=== PATIENT | male | born 1965 | race Two or more races ===

== ENCOUNTER → 2023-01-02 | Day surgery (SDC) | payer MEDICAID ==
[2023-01-01 15:02] LABS: Basophils # (auto) 0.1 10 ^3/uL (0-0.2); Basophils % (auto) 1.4 % (0.0-2.0); Eosinophils # (auto) 0.3 10 ^3/uL (0-0.8); Hematocrit 28.9 % (41.0-53.0); Hemoglobin 9.5 g/dL (13.5-17.5); Lymphocytes # (auto) 0.8 10 ^3/uL (0.4-5.4); Lymphocytes % (auto) 15.6 % (10.0-50.0); Mean Corpuscular Hemoglobin 30.4 pg (28.0-32.0); Monocytes # (auto) 0.5 10 ^3/uL (0-1.3); Monocytes % (auto) 8.5 % (0.0-12.0); Neutrophils # (auto) 3.8 10 ^3/uL (1.6-8.6); Neutrophils % (auto) 69.5 % (37.0-80.0); Nucleated Red Blood Cells % 0.1 %; Red Blood Cells 3.14 10^6/uL (4.5-5.90); Red Cell Distribution Width 15.8 % (11.8-14.3); White Blood Cell 5.4 10^3/uL (4.4-10.8)
[2023-01-01 15:18] LABS: INR 1.15 (0.9-1.15); Partial Thromboplastin Time 32.4 sec (24.6-33.4)
[2023-01-01 15:20] LABS: Albumin 3.3 g/dL (3.4-5.0); Calcium 7.8 mg/dL (8.5-10.1); Potassium 5.5 mmol/L (3.5-5.1)
[2023-01-01 15:24] LABS: BUN/Creatinine Ratio 5.5; Bilirubin, Total 0.6 mg/dL (0.2-1.0); Total Protein 7.6 g/dL (6.4-8.2)
[~2023-01-02] VITALS: Ht 167.6 cm; Wt 59.9 kg
[~2023-01-02] MED LIST: AML5T PO; B-COTAB10 OR; CARV25TA55 PO; GABA100C9 PO; HYDR50TA15 PO; INSU1INJ19 SC; LIDOCAINE VISCOUS 2% 15ML UD ONE; LOPE1TAB9 PO; TRAZ100T3 PO; diphenhdrAMINE HCL 50 MG/1 ML VL ONE
[2023-01-02] MEDS: fentaNYL CITRATE 100 MCG/2 ML VL ONE ×2 (10:20→10:24)
[2023-01-02] MEDS: MIDAZOLAM HCL 2MG/2ML 2ml VIAL (1mg/ml) ONE ×2 (10:20→10:24)
[2023-01-02 11:22] VITALS: BP 151/66
== END | disposition home or self-care (01) ==
LOC: GI 09:24
PROVIDERS: ATTEND Internal Medicine Gastroenterology
DX: R13.10 Dysphagia, unspecified (principal); K29.70 Gastritis, unspecified, without bleeding; K22.89 Other specified disease of esophagus; I46.9 Cardiac arrest, cause unspecified; D19.7 Benign neoplasm of mesothelial tissue of other sites; E11.9 Type 2 diabetes mellitus without complications; I10 Essential (primary) hypertension; K52.9 Noninfective gastroenteritis and colitis, unspecified; Z79.4 Long term (current) use of insulin; Z98.890 Other specified postprocedural states; Z79.899 Other long term (current) drug therapy; Z87.891 Personal history of nicotine dependence; Z20.822 Contact with and (suspected) exposure to COVID-19
CPT/HCPCS: 36415; 43239; 43450; 80053; 82962; 85025; 85610; 85730; J1200; J2250; J3010; U0003

== ENCOUNTER → 2023-03-20 | Day surgery (SDC) | payer MEDICAID ==
[2023-03-14 14:54] LABS: Basophils # (auto) 0.1 10 ^3/uL (0-0.2); Basophils % (auto) 1.7 % (0.0-2.0); Eosinophils # (auto) 0.3 10 ^3/uL (0-0.8); Eosinophils % (auto) 6.3 % (0.0-7.0); Hematocrit 27.5 % (41.0-53.0); Hemoglobin 9.1 g/dL (13.5-17.5); Lymphocytes # (auto) 0.9 10 ^3/uL (0.4-5.4); Lymphocytes % (auto) 21.7 % (10.0-50.0); Mean Corpuscular Hemoglobin 29.8 pg (28.0-32.0); Mean Corpuscular Hgb Conc. 33.2 g/dL (32.0-36.0); Mean Corpuscular Volume 89.9 fL (80.0-100.0); Monocytes # (auto) 0.4 10 ^3/uL (0-1.3); Monocytes % (auto) 9.5 % (0.0-12.0); Neutrophils # (auto) 2.5 10 ^3/uL (1.6-8.6); Neutrophils % (auto) 60.8 % (37.0-80.0); Nucleated Red Blood Cells % 0.1 %; Red Blood Cells 3.06 10^6/uL (4.5-5.90); Red Cell Distribution Width 17.2 % (11.8-14.3); White Blood Cell 4.2 10^3/uL (4.4-10.8)
[2023-03-14 15:11] LABS: INR 1.2 (0.9-1.15); Partial Thromboplastin Time 33.1 sec (24.6-33.4)
[2023-03-14 15:17] LABS: Albumin 2.9 g/dL (3.4-5.0); Calcium 7.6 mg/dL (8.5-10.1); Potassium 4.2 mmol/L (3.5-5.1)
[2023-03-14 15:21] LABS: BUN/Creatinine Ratio 4.8 (10.0-20.0); Bilirubin, Total 0.7 mg/dL (0.2-1.0); Total Protein 7.6 g/dL (6.4-8.2)
[~2023-03-20] VITALS: Ht 167.6 cm; Wt 58.5 kg
[~2023-03-20] MED LIST changes: +FLUMAZENIL 0.1 MG/ML INJ 10ML MDV IV ONE; -LIDOCAINE VISCOUS 2% 15ML UD ONE; +NALOXONE HCL 0.4 MG/ML VIAL ONE
[2023-03-20] MEDS: fentaNYL CITRATE 100 MCG/2 ML VL ONE ×2 (09:26→09:29)
[2023-03-20] MEDS: MIDAZOLAM HCL 2MG/2ML 2ml VIAL (1mg/ml) ONE ×2 (09:26→09:29)
[2023-03-20 10:36] VITALS: BP 186/82
== END | disposition home or self-care (01) ==
LOC: GI 08:07
PROVIDERS: ATTEND Internal Medicine Gastroenterology
DX: R19.7 Diarrhea, unspecified (principal); K57.30 Diverticulosis of large intestine without perforation or abscess without bleeding; K64.8 Other hemorrhoids; K21.00 Gastro-esophageal reflux disease with esophagitis, without bleeding
CPT/HCPCS: 36415; 45380; 80053; 82962; 85025; 85610; 85730; J1200; J2250; J3010; 99152

== ENCOUNTER 2024-04-29 19:19 | Inpatient (IN) | payer MEDICAID ==
[~2024-04-29] VITALS: Ht 167.6 cm; Wt 64.7 kg
[~2024-04-29 19:19] MED LIST changes: -InsuLIN REG 1unit/0.01ml Soln (100units/ml) ONE; -InsuLIN REG 1unit/0.01ml Soln (100units/ml) SC SCH; -LIDOCAINE 2% (LOCAL ANESTH.) PF 5ml SDV ONE; -PROPOFOL 10 MG/ML 20 ML IV ONE
[2024-04-29 20:26] LABS: Basophils # (auto) 0 10 ^3/uL (0-0.2); Eosinophils # (auto) 0.2 10 ^3/uL (0-0.8); Eosinophils % (auto) 3.9 % (0.0-7.0); Hematocrit 40.3 % (41.0-53.0); Hemoglobin 13.1 g/dL (13.5-17.5); Lymphocytes # (auto) 0.5 10 ^3/uL (0.4-5.4); Lymphocytes % (auto) 10.6 % (10.0-50.0); Mean Corpuscular Hgb Conc. 32.5 g/dL (32.0-36.0); Mean Corpuscular Volume 89.2 fL (80.0-100.0); Monocytes # (auto) 0.3 10 ^3/uL (0-1.3); Monocytes % (auto) 6.3 % (0.0-12.0); Neutrophils # (auto) 3.9 10 ^3/uL (1.6-8.6); Neutrophils % (auto) 78.2 % (37.0-80.0); Nucleated Red Blood Cells % 0.1 %; Red Blood Cells 4.52 10^6/uL (4.5-5.90)
[2024-04-29 20:36] LABS: Chloride 102 mmol/L (98-107); Potassium 5.4 mmol/L (3.5-5.1); Sodium 133 mmol/L (136-145)
[2024-04-29 20:37] LABS: Anion Gap 11 (5-15); Carbon Dioxide 20 mmol/L (20-30)
[2024-04-29 20:38] LABS: Calcium 8.6 mg/dL (8.5-10.1)
[2024-04-29 20:42] LABS: BUN/Creatinine Ratio 4.7 (10.0-20.0); Blood Urea Nitrogen 40 mg/dL (9-23)
[2024-04-29 20:45] LABS: Glucose 114 mg/dL (74-106)
[2024-04-29 20:46] LABS: Large Platelets FEW; Platelet Estimate Decreased
[2024-04-29 21:00] VITALS: PULSE 69; RESP 20; O2SAT 96
[2024-04-29] MEDS: levETIRAcetam 1000 mg/100ml 100 ML IV ONE (21:56)
[2024-04-29] MEDS: LORazepam 2MG/ML-1ML VIAL IV ONE (21:56)
[2024-04-29] MEDS ORDERED: NITROGLYCERIN 0.4 MG SL TAB SL PRN (23:45)
[2024-04-29] MEDS ORDERED: MORPHINE SULFATE INJ 2 MG/ml SYRG IV PRN (23:45)
[2024-04-29] MEDS ORDERED: LORazepam 2MG/ML-1ML VIAL IV PRN (23:45)
[2024-04-30] MEDS: ACCU-CHEK COMFORT CURVE STRIP VI SCH (00:10)
[2024-04-30 04:39] LABS: Basophils # (auto) 0 10 ^3/uL (0-0.2); Basophils % (auto) 0.4 % (0.0-2.0); Eosinophils # (auto) 0 10 ^3/uL (0-0.8); Eosinophils % (auto) 0.5 % (0.0-7.0); Hematocrit 37.7 % (41.0-53.0); Hemoglobin 12.2 g/dL (13.5-17.5); Lymphocytes # (auto) 0.7 10 ^3/uL (0.4-5.4); Lymphocytes % (auto) 9.7 % (10.0-50.0); Mean Corpuscular Hemoglobin 29.2 pg (28.0-32.0); Mean Corpuscular Hgb Conc. 32.2 g/dL (32.0-36.0); Mean Corpuscular Volume 90.6 fL (80.0-100.0); Monocytes # (auto) 0.5 10 ^3/uL (0-1.3); Monocytes % (auto) 7.6 % (0.0-12.0); Neutrophils # (auto) 5.8 10 ^3/uL (1.6-8.6); Neutrophils % (auto) 81.8 % (37.0-80.0); Red Blood Cells 4.16 10^6/uL (4.5-5.90); Red Cell Distribution Width 17.2 % (11.8-14.3); White Blood Cell 7.1 10^3/uL (4.4-10.8)
[2024-04-30 04:59] LABS: Alanine Aminotransferase 59 U/L (7-40); Alkaline Phosphatase 127 U/L (46-116); Anion Gap 15 (5-15); Aspartate Aminotransferase 38 U/L (13-40); BUN/Creatinine Ratio 5.4 (10.0-20.0); Bilirubin, Total 0.7 mg/dL (0.2-1.0); Blood Urea Nitrogen 48 mg/dL (9-23); Calcium 8.3 mg/dL (8.5-10.1); Carbon Dioxide 17 mmol/L (20-30); Chloride 100 mmol/L (98-107); Glucose 124 mg/dL (74-106); Sodium 132 mmol/L (136-145); Total Protein 6.8 g/dL (5.7-8.2)
[2024-04-30 05:04] LABS: Potassium 6.5 mmol/L (3.5-5.1)
[2024-04-30] MEDS: DEXTROSE (50%) 50ML SYRG IV ONE (05:26)
[2024-04-30] MEDS: SODIUM BICARB 8.4% 50Meq/50ml SYR INJ IV ONE (05:30)
[2024-04-30] MEDS: FUROSEMIDE 20 MG/2 ML VIAL IV ONE (05:30)
[2024-04-30] MEDS: InsuLIN REG 1unit/0.01ml Soln (100units/ml) IV ONE (05:49)
[2024-04-30] MEDS: SODIUM CHLOR 0.9% PF (SALINE LOCK) 10ML VIAL/SYR IV SCH (06:02)
[2024-04-30 07:45] VITALS: PULSE 65; RESP 16; O2SAT 100
[2024-04-30 09:50] LABS: Urine Bacteria FEW /hpf (None Seen); Urine Blood 2+ /uL (Negative); Urine Color Yellow (Yellow); Urine Protein, UAD 3+ (Negative); Urine Specific Gravity 1.013 (1.001-1.035); Urine Urobilinogen Normal (Negative); Urine WBC 2 /hpf (0 - 3)
[2024-04-30 09:51] LABS: Urine Clarity Hazy (Clear)
[2024-04-30] MEDS: levETIRAcetam 500 mg/100ml 100 ML IV SCH (10:01)
[2024-04-30] MEDS: SODIUM CHL 0.9% 1000 ML BAG XX ONE (17:55)
[2024-04-30] MEDS: hydrALAZINE HCL 20 MG/ML VL IV PRN (18:31)
[2024-04-30 20:00] VITALS: PULSE 80; RESP 18; O2SAT 98
[2024-04-30] MEDS ORDERED: LORazepam 2MG/ML-1ML VIAL IV PRN (20:00)
[2024-05-01] VITALS (23 sets, daily range): BP systolic 97–161; BP diastolic 64–80; PULSE 67–78; RESP 8–21; TEMP 97.8–99.1; O2SAT 80–100
[2024-05-01] MEDS: D5W/SOD CHLO 0.9% 250 ML IV ONE (02:26)
[2024-05-01 02:37] LABS: Hemoglobin 12.3 g/dL (13.5-17.5)
[2024-05-01] MEDS: LIDOCAINE VISCOUS 2% 15ML UD MT ONE (05:15)
[2024-05-01] MEDS: OXYMETAZOLINE HCL 0.05 % NASAL SPRAY 15ML EACHNOSTRI ONE (05:15)
[2024-05-01] MEDS: cefTRIAXone 1GM/50ML D5W 50 ML IV ONE (05:15)
[2024-05-01] MEDS ORDERED: LIDOCAINE 2% TOPICAL JELLY 5 ML URJT TOP ONE (05:15)
[2024-05-01] MEDS: LORazepam 2MG/ML-1ML VIAL IV ONE (05:44)
[2024-05-01 14:13] LABS: Chloride 100 mmol/L (98-107); Potassium 4.2 mmol/L (3.5-5.1); Sodium 138 mmol/L (136-145)
[2024-05-01 14:14] LABS: Anion Gap 12 (5-15); Calcium 8.5 mg/dL (8.5-10.1); Carbon Dioxide 26 mmol/L (20-30)
[2024-05-01 14:19] LABS: BUN/Creatinine Ratio 4.8 (10.0-20.0); Glucose 172 mg/dL (74-106)
[2024-05-01 14:37] LABS: Blood Urea Nitrogen 32 mg/dL (9-23)
[2024-05-01 20:32] LABS: Base Excess 0.7 mmol/L (-2.0-2.0)
[2024-05-02] VITALS (17 sets, daily range): BP systolic 92–139; BP diastolic 35–93; PULSE 68–81; RESP 12–22; TEMP 97.5–98.7; O2SAT 90–97
[2024-05-02 05:07] LABS: Eosinophils # (auto) 0.1 10 ^3/uL (0-0.8); Lymphocytes # (auto) 0.6 10 ^3/uL (0.4-5.4); Neutrophils % (auto) 83.7 % (37.0-80.0)
[2024-05-02 05:09] LABS: Basophils # (auto) 0 10 ^3/uL (0-0.2); Basophils % (auto) 0.5 % (0.0-2.0); Eosinophils % (auto) 0.8 % (0.0-7.0); Hematocrit 36.8 % (41.0-53.0); Hemoglobin 11.9 g/dL (13.5-17.5); Lymphocytes % (auto) 6.7 % (10.0-50.0); Mean Corpuscular Hemoglobin 29.1 pg (28.0-32.0); Mean Corpuscular Hgb Conc. 32.3 g/dL (32.0-36.0); Mean Corpuscular Volume 90.3 fL (80.0-100.0); Monocytes # (auto) 0.7 10 ^3/uL (0-1.3); Monocytes % (auto) 8.3 % (0.0-12.0); Neutrophils # (auto) 7.5 10 ^3/uL (1.6-8.6); Red Blood Cells 4.07 10^6/uL (4.5-5.90); Red Cell Distribution Width 16.5 % (11.8-14.3)
[2024-05-02 05:42] LABS: Chloride 102 mmol/L (98-107); Potassium 4.8 mmol/L (3.5-5.1); Sodium 140 mmol/L (136-145)
[2024-05-02 05:43] LABS: Anion Gap 16 (5-15); Calcium 8.5 mg/dL (8.7-10.4); Carbon Dioxide 22 mmol/L (20-30)
[2024-05-02 05:48] LABS: BUN/Creatinine Ratio 6.3 (10.0-20.0); Glucose 79 mg/dL (74-106)
[2024-05-02 05:49] LABS: Magnesium 1.9 mg/dL (1.6-2.6)
[2024-05-02 05:50] LABS: Blood Urea Nitrogen 48 mg/dL (9-23)
[2024-05-02] MEDS: DEXTROSE (50%) 50ML SYRG IV PRN (07:48)
[2024-05-02] MEDS: SODIUM CHL 0.9% 1000 ML BAG XX ONE (13:06)
[2024-05-02] MEDS: D5W/SOD CHL 0.45% 1,000 ML IV SCH (13:08)
[2024-05-02] MEDS: HALOPERIDOL LACTATE 5 MG/ML INJ VIAL IM ONE (15:48)
[2024-05-03] VITALS (29 sets, daily range): BP systolic 94–154; BP diastolic 14–96; PULSE 68–80; RESP 13–29; TEMP 97.5–99.1; O2SAT 85–100
[2024-05-03] MEDS: HALOPERIDOL LACTATE 5 MG/ML INJ VIAL IM PRN (02:43)
[2024-05-03] MEDS ORDERED: VANCOMYCIN PER PHARMACY 0 MG IV SCH (11:45)
[2024-05-03] MEDS: IPRATROPIUM BROM 0.5 MG/2.5ML INH SOL NEB SCH (12:08)
[2024-05-03] MEDS: ALBUTEROL SULF 2.5 MG/0.5ML(0.5%) NEB SOLN NEB SCH (12:08)
[2024-05-03 12:09] LABS: Basophils # (auto) 0 10 ^3/uL (0-0.2); Eosinophils # (auto) 0 10 ^3/uL (0-0.8); Lymphocytes # (auto) 0.4 10 ^3/uL (0.4-5.4); Monocytes # (auto) 0.6 10 ^3/uL (0-1.3); Neutrophils # (auto) 6.8 10 ^3/uL (1.6-8.6); White Blood Cell 7.8 10^3/uL (4.4-10.8)
[2024-05-03 12:10] LABS: Alanine Aminotransferase 38 U/L (7-40); Albumin 4.2 g/dL (3.2-4.8); Alkaline Phosphatase 113 U/L (46-116); Anion Gap 19 (5-15); Aspartate Aminotransferase 34 U/L (13-40); BUN/Creatinine Ratio 5.3 (10.0-20.0); Bilirubin, Total 2.3 mg/dL (0.2-1.0); Carbon Dioxide 19 mmol/L (20-30); Chloride 103 mmol/L (98-107); Glucose 99 mg/dL (74-106); Potassium 4.6 mmol/L (3.5-5.1); Sodium 141 mmol/L (136-145); Total Protein 7.2 g/dL (5.7-8.2)
[2024-05-03 12:11] LABS: Basophils % (auto) 0.3 % (0.0-2.0); Eosinophils % (auto) 0.2 % (0.0-7.0); Hematocrit 33.3 % (41.0-53.0); Hemoglobin 10.8 g/dL (13.5-17.5); Lymphocytes % (auto) 5.2 % (10.0-50.0); Mean Corpuscular Hemoglobin 29.3 pg (28.0-32.0); Mean Corpuscular Hgb Conc. 32.3 g/dL (32.0-36.0); Mean Corpuscular Volume 90.9 fL (80.0-100.0); Monocytes % (auto) 7.4 % (0.0-12.0); Neutrophils % (auto) 86.9 % (37.0-80.0); Red Blood Cells 3.67 10^6/uL (4.5-5.90); Red Cell Distribution Width 16.4 % (11.8-14.3)
[2024-05-03 12:38] LABS: Blood Urea Nitrogen 28 mg/dL (9-23)
[2024-05-03] MEDS: VANCOMYCIN 1GM/200ML 200 ML IV ONE (13:19)
[2024-05-03] MEDS ORDERED: CLINIMIX PER PHARMACY 0 ML IV SCH (17:00)
[2024-05-03] MEDS: SODIUM CHL 0.9% 1000 ML BAG XX ONE (17:30)
[2024-05-03] MEDS: ACCU-CHEK COMFORT CURVE STRIP VI SCH (18:00)
[2024-05-03] MEDS: PIPERACILLIN-TAZOB 2.25GM 50 ML IV SCH (22:00)
[2024-05-03] MEDS: AMINO ACID INFUSION IN D10W 1,000 ML IV ONE (23:29)
[2024-05-04] VITALS (29 sets, daily range): BP systolic 133–170; BP diastolic 32–67; PULSE 72–85; RESP 14–22; TEMP 97.7–99.4; O2SAT 94–99
[2024-05-04] MEDS: ACCU-CHEK COMFORT CURVE STRIP VI SCH
[2024-05-04] MEDS: InsuLIN REG 1unit/0.01ml Soln (100units/ml) SC SCH
[2024-05-04 05:07] LABS: Basophils # (auto) 0 10 ^3/uL (0-0.2); Basophils % (auto) 0.5 % (0.0-2.0); Eosinophils # (auto) 0 10 ^3/uL (0-0.8); Eosinophils % (auto) 0.7 % (0.0-7.0); Hematocrit 35.6 % (41.0-53.0); Hemoglobin 11.5 g/dL (13.5-17.5); Lymphocytes # (auto) 0.3 10 ^3/uL (0.4-5.4); Lymphocytes % (auto) 5.3 % (10.0-50.0); Mean Corpuscular Hemoglobin 28.9 pg (28.0-32.0); Mean Corpuscular Hgb Conc. 32.4 g/dL (32.0-36.0); Mean Corpuscular Volume 89.3 fL (80.0-100.0); Monocytes # (auto) 0.4 10 ^3/uL (0-1.3); Monocytes % (auto) 6.9 % (0.0-12.0); Neutrophils # (auto) 5.6 10 ^3/uL (1.6-8.6); Neutrophils % (auto) 86.6 % (37.0-80.0); Red Blood Cells 3.98 10^6/uL (4.5-5.90); Red Cell Distribution Width 16.3 % (11.8-14.3); White Blood Cell 6.5 10^3/uL (4.4-10.8)
[2024-05-04 05:32] LABS: Alanine Aminotransferase 33 U/L (7-40); Alkaline Phosphatase 122 U/L (46-116); Anion Gap 18 (5-15); BUN/Creatinine Ratio 5.9 (10.0-20.0); Blood Urea Nitrogen 24 mg/dL (9-23); Calcium 9.4 mg/dL (8.5-10.1); Carbon Dioxide 21 mmol/L (20-30); Chloride 99 mmol/L (98-107); Potassium 3.8 mmol/L (3.5-5.1); Sodium 138 mmol/L (136-145); Triglycerides 89 mg/dL (< 150)
[2024-05-04 05:33] LABS: Albumin 4.2 g/dL (3.2-4.8); Aspartate Aminotransferase 25 U/L (13-40); Phosphorus 3.3 mg/dL (2.4-5.1); Total Protein 7.4 g/dL (5.7-8.2)
[2024-05-04 05:46] LABS: Glucose 226 mg/dL (74-106)
[2024-05-04] MEDS: ALBUMIN 25% 100 ML IV SCH (07:15)
[2024-05-04] MEDS: VANCOMYCIN 500 MG in D5W 5% 100 ML IV ONE (10:30)
[2024-05-04 10:41] LABS: Basophils # (auto) 0 10 ^3/uL (0-0.2); Basophils % (auto) 0.7 % (0.0-2.0); Eosinophils # (auto) 0.1 10 ^3/uL (0-0.8); Eosinophils % (auto) 0.8 % (0.0-7.0); Hematocrit 35.2 % (41.0-53.0); Hemoglobin 11.6 g/dL (13.5-17.5); Lymphocytes # (auto) 0.4 10 ^3/uL (0.4-5.4); Lymphocytes % (auto) 7.2 % (10.0-50.0); Mean Corpuscular Hemoglobin 29.1 pg (28.0-32.0); Mean Corpuscular Hgb Conc. 32.9 g/dL (32.0-36.0); Mean Corpuscular Volume 88.3 fL (80.0-100.0); Monocytes # (auto) 0.4 10 ^3/uL (0-1.3); Monocytes % (auto) 7.2 % (0.0-12.0); Neutrophils % (auto) 84.1 % (37.0-80.0); Red Blood Cells 3.99 10^6/uL (4.5-5.90); Red Cell Distribution Width 16.1 % (11.8-14.3); White Blood Cell 5.9 10^3/uL (4.4-10.8)
[2024-05-04] MEDS: DEXTROSE (50%) 50ML SYRG IV SCH (17:54)
[2024-05-04] MEDS ORDERED: LORazepam 2MG/ML-1ML VIAL IV PRN (20:00)
[2024-05-04] MEDS: AMINO ACID INFUSION IN D10W 1,000 ML IV SCH (20:03)
[2024-05-04] MEDS: MORPHINE SULFATE INJ 2 MG/ml SYRG IV PRN (23:33)
[2024-05-05] VITALS (44 sets, daily range): BP systolic 88–179; BP diastolic 24–67; PULSE 63–88; RESP 10–30; TEMP 96.9–98.8; O2SAT 95–100
[2024-05-05 05:38] LABS: Hematocrit 38.2 % (41.0-53.0); Hemoglobin 12.9 g/dL (13.5-17.5)
[2024-05-05 05:54] LABS: Potassium 3.2 mmol/L (3.5-5.1)
[2024-05-05 05:56] LABS: Calcium 9.4 mg/dL (8.7-10.4)
[2024-05-05 06:01] LABS: Albumin 3.7 g/dL (3.2-4.8); BUN/Creatinine Ratio 10.3 (10.0-20.0); Magnesium 2.1 mg/dL (1.6-2.6)
[2024-05-05 06:03] LABS: Phosphorus 2.9 mg/dL (2.4-5.1)
[2024-05-05] MEDS: SODIUM CHL 0.9% 1000 ML BAG XX ONE (07:00)
[2024-05-05] MEDS: ALBUMIN 25% 100 ML IV STA (11:09)
[2024-05-05] MEDS ORDERED: LORazepam 2MG/ML-1ML VIAL IV ONE (12:15)
[2024-05-05] MEDS: ALBUMIN 25% 100 ML IV ONE (12:49)
[2024-05-05] MEDS ORDERED: POTASSIUM CHL 20MEQ/100ML 100 ML IV ONE (14:30)
[2024-05-06] VITALS (26 sets, daily range): BP systolic 128–182; BP diastolic 36–76; PULSE 68–86; RESP 10–99; TEMP 97.6–98.2; O2SAT 89–100
[2024-05-06 05:17] LABS: Basophils # (auto) 0.1 10 ^3/uL (0-0.2); Eosinophils # (auto) 0.4 10 ^3/uL (0-0.8); Hemoglobin 12.6 g/dL (13.5-17.5); Lymphocytes # (auto) 0.4 10 ^3/uL (0.4-5.4); Monocytes # (auto) 0.6 10 ^3/uL (0-1.3); Red Blood Cells 4.34 10^6/uL (4.5-5.90)
[2024-05-06 05:21] LABS: Basophils % (auto) 1.1 % (0.0-2.0); Eosinophils % (auto) 7.8 % (0.0-7.0); Hematocrit 38.2 % (41.0-53.0); Lymphocytes % (auto) 7.7 % (10.0-50.0); Mean Corpuscular Hgb Conc. 32.9 g/dL (32.0-36.0); Monocytes % (auto) 11.9 % (0.0-12.0); Neutrophils # (auto) 3.7 10 ^3/uL (1.6-8.6); Neutrophils % (auto) 71.5 % (37.0-80.0); Nucleated Red Blood Cells % 0.2 %; White Blood Cell 5.2 10^3/uL (4.4-10.8)
[2024-05-06 05:27] LABS: Potassium 3.3 mmol/L (3.5-5.1)
[2024-05-06 05:29] LABS: Calcium 9.9 mg/dL (8.7-10.4)
[2024-05-06 05:34] LABS: BUN/Creatinine Ratio 9.3 (10.0-20.0)
[2024-05-06 05:36] LABS: Phosphorus 1.9 mg/dL (2.4-5.1)
[2024-05-06] MEDS ORDERED: VANCOMYCIN IV ONE (11:00)
[2024-05-06] MEDS ORDERED: D5W 5% IV ONE (11:00)
[2024-05-06] MEDS: POTASSIUM CHL 20MEQ/100ML 100 ML IV ONE (14:00)
[2024-05-06] MEDS: cloNIDine 0.2 mg/24hr 7DAY PATCH TD SCH (14:11)
[2024-05-06] MEDS: D5W 5% IV ONE (16:01)
[2024-05-06] MEDS: VANCOMYCIN IV ONE (16:01)
[2024-05-07] VITALS (24 sets, daily range): BP systolic 127–187; BP diastolic 40–66; PULSE 67–81; RESP 8–18; TEMP 97.6–99.9; O2SAT 92–100
[2024-05-07 06:12] LABS: Alanine Aminotransferase 16 U/L (7-40); Albumin 3.7 g/dL (3.2-4.8); Alkaline Phosphatase 77 U/L (46-116); Anion Gap 13 (5-15); Aspartate Aminotransferase 14 U/L (13-40); BUN/Creatinine Ratio 10.1 (10.0-20.0); Calcium 9.5 mg/dL (8.7-10.4); Carbon Dioxide 22 mmol/L (20-30); Chloride 99 mmol/L (98-107); Glucose 230 mg/dL (74-106); Magnesium 1.9 mg/dL (1.6-2.6); Potassium 3.7 mmol/L (3.5-5.1); Sodium 134 mmol/L (136-145)
[2024-05-07 06:13] LABS: Phosphorus 2.6 mg/dL (2.4-5.1); Total Protein 6.7 g/dL (5.7-8.2)
[2024-05-07 06:21] LABS: Blood Urea Nitrogen 58 mg/dL (9-23)
[2024-05-07 10:07] LABS: Basophils # (auto) 0.1 10 ^3/uL (0-0.2); Basophils % (auto) 1.2 % (0.0-2.0); Eosinophils # (auto) 0.5 10 ^3/uL (0-0.8); Eosinophils % (auto) 9.2 % (0.0-7.0); Hematocrit 35.5 % (41.0-53.0); Hemoglobin 11.5 g/dL (13.5-17.5); Lymphocytes # (auto) 0.6 10 ^3/uL (0.4-5.4); Lymphocytes % (auto) 10.8 % (10.0-50.0); Mean Corpuscular Hemoglobin 28.5 pg (28.0-32.0); Mean Corpuscular Hgb Conc. 32.3 g/dL (32.0-36.0); Monocytes # (auto) 0.6 10 ^3/uL (0-1.3); Monocytes % (auto) 11.8 % (0.0-12.0); Neutrophils # (auto) 3.4 10 ^3/uL (1.6-8.6); Nucleated Red Blood Cells % 0.2 %; Red Blood Cells 4.04 10^6/uL (4.5-5.90); Red Cell Distribution Width 15.9 % (11.8-14.3); White Blood Cell 5.1 10^3/uL (4.4-10.8)
[2024-05-07 11:39] LABS: Folate (Folic Acid) 13.96 ng/mL (>5.38)
[2024-05-07] MEDS ORDERED: ALBUMIN 25% 100 ML IV PRN (13:00)
[2024-05-07] MEDS: SODIUM CHL 0.9% 1000 ML BAG XX ONE (13:54)
[2024-05-07] MEDS: ALBUMIN 25% 100 ML IV SCH (13:56)
[2024-05-07] MEDS: NOREPINEPHRINE 8 MG/250ML KIT 250 ML IV SCH (14:13)
[2024-05-07] MEDS: NOREPINEPHRINE 8 MG/250ML KIT 250 ML IV ONE (14:14)
[2024-05-07] MEDS ORDERED: LORazepam 2MG/ML-1ML VIAL IV PRN (16:30)
[2024-05-07] MEDS: BISACODYL 10 MG RECT SUPP PR ONE (17:29)
[2024-05-07] MEDS: LORazepam 2MG/ML-1ML VIAL IV ONE (18:15)
[2024-05-08] VITALS (27 sets, daily range): BP systolic 111–177; BP diastolic 35–69; PULSE 64–81; RESP 8–19; TEMP 97–99.4; O2SAT 95–100
[2024-05-08 05:48] LABS: Potassium 3.2 mmol/L (3.5-5.1)
[2024-05-08 05:49] LABS: Calcium 9.9 mg/dL (8.7-10.4)
[2024-05-08 05:54] LABS: BUN/Creatinine Ratio 6.4 (10.0-20.0)
[2024-05-08 05:55] LABS: Magnesium 1.9 mg/dL (1.6-2.6)
[2024-05-08 05:56] LABS: Albumin 4.1 g/dL (3.2-4.8); Phosphorus 1.3 mg/dL (2.4-5.1)
[2024-05-08] MEDS: POTASSIUM CHL 20MEQ/100ML 100 ML IV ONE (08:13)
[2024-05-08] MEDS: VANCOMYCIN 500 MG in D5W 5% 100 ML IV ONE (10:38)
[2024-05-08] MEDS: POTASSIUM PHOSPHATE 22 MEQ in SODIUM CHL 0.9% 100 ML IV ONE (18:07)
[2024-05-08] MEDS: PIPERACILLIN-TAZOB 3.375GM 100 ML IV SCH (21:42)
[2024-05-09] VITALS (29 sets, daily range): BP systolic 102–171; BP diastolic 32–60; PULSE 61–77; RESP 8–20; TEMP 97.6–98; O2SAT 97–100
[2024-05-09 07:21] LABS: Alanine Aminotransferase 14 U/L (7-40); Albumin 3.8 g/dL (3.2-4.8); Alkaline Phosphatase 73 U/L (46-116); Anion Gap 12 (5-15); Aspartate Aminotransferase 12 U/L (13-40); BUN/Creatinine Ratio 10.7 (10.0-20.0); Bilirubin, Total 1.3 mg/dL (0.2-1.0); Calcium 9.5 mg/dL (8.7-10.4); Carbon Dioxide 24 mmol/L (20-30); Chloride 98 mmol/L (98-107); Magnesium 1.8 mg/dL (1.6-2.6); Phosphorus 1.9 mg/dL (2.4-5.1); Potassium 3.4 mmol/L (3.5-5.1); Sodium 134 mmol/L (136-145); Total Protein 6.5 g/dL (5.7-8.2)
[2024-05-09 07:29] LABS: Blood Urea Nitrogen 65 mg/dL (9-23); Glucose 228 mg/dL (74-106)
[2024-05-09 08:03] LABS: Basophils # (auto) 0.1 10 ^3/uL (0-0.2); Basophils % (auto) 1.3 % (0.0-2.0); Eosinophils # (auto) 0.5 10 ^3/uL (0-0.8); Eosinophils % (auto) 11.2 % (0.0-7.0); Hematocrit 35.1 % (41.0-53.0); Hemoglobin 11.5 g/dL (13.5-17.5); Lymphocytes # (auto) 0.4 10 ^3/uL (0.4-5.4); Lymphocytes % (auto) 9.6 % (10.0-50.0); Mean Corpuscular Hemoglobin 28.7 pg (28.0-32.0); Mean Corpuscular Hgb Conc. 32.8 g/dL (32.0-36.0); Mean Corpuscular Volume 87.3 fL (80.0-100.0); Monocytes # (auto) 0.8 10 ^3/uL (0-1.3); Monocytes % (auto) 17.2 % (0.0-12.0); Neutrophils # (auto) 2.6 10 ^3/uL (1.6-8.6); Neutrophils % (auto) 60.7 % (37.0-80.0); Nucleated Red Blood Cells % 0.1 %; Red Blood Cells 4.02 10^6/uL (4.5-5.90); Red Cell Distribution Width 15.8 % (11.8-14.3); White Blood Cell 4.3 10^3/uL (4.4-10.8)
[2024-05-09] MEDS: POTASSIUM CHL 20MEQ/100ML 100 ML IV ONE (11:09)
[2024-05-09] MEDS: SODIUM CHLORIDE LOCK 10 ML ONE (21:02)
[2024-05-10] VITALS (27 sets, daily range): BP systolic 95–168; BP diastolic 24–61; PULSE 65–83; RESP 9–18; TEMP 97.3–98.8; O2SAT 90–100
[2024-05-10 05:33] LABS: Potassium 4.1 mmol/L (3.5-5.1)
[2024-05-10 05:34] LABS: Calcium 9.6 mg/dL (8.5-10.1)
[2024-05-10 05:39] LABS: BUN/Creatinine Ratio 10.2 (10.0-20.0); Magnesium 1.9 mg/dL (1.6-2.6)
[2024-05-10 05:40] LABS: Albumin 3.9 g/dL (3.2-4.8)
[2024-05-10 05:41] LABS: Phosphorus 3.2 mg/dL (2.4-5.1)
[2024-05-10 09:22] LABS: Hematocrit 35.3 % (41.0-53.0); Hemoglobin 11.8 g/dL (13.5-17.5); Mean Corpuscular Hemoglobin 28.6 pg (28.0-32.0); Mean Corpuscular Hgb Conc. 33.3 g/dL (32.0-36.0); Mean Corpuscular Volume 85.7 fL (80.0-100.0); Red Blood Cells 4.12 10^6/uL (4.5-5.90); Red Cell Distribution Width 15.7 % (11.8-14.3); White Blood Cell 5.5 10^3/uL (4.4-10.8)
[2024-05-10 09:25] LABS: Band Neutrophils % (manual) 0; Basophils % (manual) 0 (0.0-2.0); Blast Cells 0; Metamyelocytes % 0; Myelocytes % 0; Promyelocytes % 0; Reactive Lymphocytes 0
[2024-05-10 09:51] LABS: Eosinophils % (manual) 6 (0-7); Lymphocytes % (manual) 17 (10.0-50.0); Monocytes % (manual) 13 (0-12)
[2024-05-10 09:52] LABS: Platelet Estimate Markedly Decreased
[2024-05-11] VITALS (14 sets, daily range): BP systolic 136–195; BP diastolic 44–63; PULSE 64–83; RESP 14–21; TEMP 96.7–98.8; O2SAT 96–100
[2024-05-11 06:54] LABS: Alanine Aminotransferase 12 U/L (7-40); Alkaline Phosphatase 68 U/L (46-116); Anion Gap 18 (5-15); Aspartate Aminotransferase 11 U/L (13-40); BUN/Creatinine Ratio 10.3 (10.0-20.0); Calcium 9.2 mg/dL (8.7-10.4); Carbon Dioxide 14 mmol/L (20-30); Chloride 96 mmol/L (98-107); Glucose 159 mg/dL (74-106); Magnesium 1.9 mg/dL (1.6-2.6); Potassium 4.5 mmol/L (3.5-5.1); Sodium 128 mmol/L (136-145)
[2024-05-11 06:55] LABS: Albumin 3.5 g/dL (3.2-4.8); Bilirubin, Total 1.1 mg/dL (0.2-1.0); Phosphorus 4.1 mg/dL (2.4-5.1); Total Protein 6.3 g/dL (5.7-8.2)
[2024-05-11 06:58] LABS: Blood Urea Nitrogen 87 mg/dL (9-23)
[2024-05-11 07:00] LABS: Basophils # (auto) 0.1 10 ^3/uL (0-0.2); Eosinophils # (auto) 0.5 10 ^3/uL (0-0.8); Hemoglobin 11.1 g/dL (13.5-17.5); Lymphocytes # (auto) 0.8 10 ^3/uL (0.4-5.4); Mean Corpuscular Volume 85.7 fL (80.0-100.0); Neutrophils # (auto) 2.6 10 ^3/uL (1.6-8.6); White Blood Cell 4.8 10^3/uL (4.4-10.8)
[2024-05-11] MEDS: SODIUM CHL 0.9% 1000 ML BAG XX ONE (07:00)
[2024-05-11 07:04] LABS: Eosinophils % (auto) 10.3 % (0.0-7.0); Hematocrit 32.8 % (41.0-53.0); Lymphocytes % (auto) 16.7 % (10.0-50.0); Mean Corpuscular Hgb Conc. 33.8 g/dL (32.0-36.0); Monocytes # (auto) 0.9 10 ^3/uL (0-1.3); Monocytes % (auto) 17.6 % (0.0-12.0); Neutrophils % (auto) 53.4 % (37.0-80.0); Nucleated Red Blood Cells % 0.1 %; Red Blood Cells 3.83 10^6/uL (4.5-5.90); Red Cell Distribution Width 15.4 % (11.8-14.3)
[2024-05-12] VITALS (17 sets, daily range): BP systolic 111–184; BP diastolic 36–66; PULSE 74–86; RESP 12–20; TEMP 98.1–99.9; O2SAT 94–100
[2024-05-12 06:22] LABS: Potassium 3.9 mmol/L (3.5-5.1)
[2024-05-12 06:23] LABS: Calcium 9.2 mg/dL (8.7-10.4)
[2024-05-12 06:28] LABS: Albumin 3.5 g/dL (3.2-4.8); BUN/Creatinine Ratio 9.2 (10.0-20.0)
[2024-05-12 06:29] LABS: Magnesium 1.7 mg/dL (1.6-2.6)
[2024-05-12 06:30] LABS: Phosphorus 2.6 mg/dL (2.4-5.1)
[2024-05-12] MEDS: SODIUM CHL 0.9% 1000 ML BAG XX ONE (07:00)
[2024-05-12] MEDS ORDERED: PPN PER PHARMACY 0 ML IV SCH (09:45)
[2024-05-12 20:06] LABS: Vitamin D-2 25-Hydroxy 1.2 ng/mL (.)
[2024-05-12] MEDS: PPN PER PHARMACY IV NR (22:13)
[2024-05-13] VITALS (12 sets, daily range): BP systolic 159–223; BP diastolic 43–73; PULSE 77–92; RESP 16–25; TEMP 97.4–98.5; O2SAT 97–100
[2024-05-13] MEDS ORDERED: IPRATROPIUM BROM 0.5 MG/2.5ML INH SOL NEB PRN (06:00)
[2024-05-13] MEDS ORDERED: ALBUTEROL SULF 2.5 MG/0.5ML(0.5%) NEB SOLN NEB PRN (06:00)
[2024-05-13 06:23] LABS: Alanine Aminotransferase 13 U/L (7-40); Albumin 3.8 g/dL (3.2-4.8); Alkaline Phosphatase 86 U/L (46-116); Anion Gap 6 (5-15); Aspartate Aminotransferase 18 U/L (13-40); BUN/Creatinine Ratio 6.9 (10.0-20.0); Calcium 9.3 mg/dL (8.5-10.1); Carbon Dioxide 30 mmol/L (20-30); Chloride 103 mmol/L (98-107); Glucose 159 mg/dL (74-106); Magnesium 1.9 mg/dL (1.6-2.6); Potassium 3.5 mmol/L (3.5-5.1); Sodium 139 mmol/L (136-145); Triglycerides 55 mg/dL (< 150)
[2024-05-13 06:24] LABS: Bilirubin, Total 1.4 mg/dL (0.2-1.0); Phosphorus 1.7 mg/dL (2.4-5.1); Total Protein 6.6 g/dL (5.7-8.2)
[2024-05-13 06:29] LABS: Blood Urea Nitrogen 27 mg/dL (9-23)
[2024-05-13] MEDS: SODIUM CHL 0.9% 1000 ML BAG XX ONE (07:00)
[2024-05-13] MEDS: SODIUM PHOSPHATES 20 MEQ in SODIUM CHL 0.9% 100 ML IV ONE (15:23)
[2024-05-13] MEDS: PPN PER PHARMACY IV NR (21:16)
[2024-05-13] MEDS: ONDANSETRON HCL 4 MG/2 ML VIAL IV PRN (22:06)
[2024-05-14] VITALS (12 sets, daily range): BP systolic 114–205; BP diastolic 46–80; PULSE 69–81; RESP 15–19; TEMP 96.9–97.8; O2SAT 97–100
[2024-05-14 06:23] LABS: Alanine Aminotransferase 18 U/L (7-40); Albumin 3.9 g/dL (3.2-4.8); Alkaline Phosphatase 97 U/L (46-116); Anion Gap 6 (5-15); Aspartate Aminotransferase 31 U/L (13-40); BUN/Creatinine Ratio 7.6 (10.0-20.0); Bilirubin, Total 1.7 mg/dL (0.2-1.0); Blood Urea Nitrogen 27 mg/dL (9-23); Calcium 9.2 mg/dL (8.5-10.1); Carbon Dioxide 33 mmol/L (20-30); Chloride 101 mmol/L (98-107); Glucose 75 mg/dL (74-106); Phosphorus 2.5 mg/dL (2.4-5.1); Sodium 140 mmol/L (136-145); Total Protein 6.8 g/dL (5.7-8.2)
[2024-05-14] MEDS: POTASSIUM PHOSPHATE 22 MEQ in SODIUM CHL 0.9% 100 ML IV ONE (15:33)
[2024-05-14] MEDS: PPN PER PHARMACY IV NR (19:54)
[2024-05-15] VITALS (12 sets, daily range): BP systolic 157–173; BP diastolic 38–52; PULSE 72–77; RESP 16–20; TEMP 97.8–98.9; O2SAT 97–100
[2024-05-15 05:57] LABS: Alanine Aminotransferase 19 U/L (7-40); Alkaline Phosphatase 97 U/L (46-116); Anion Gap 8 (5-15); BUN/Creatinine Ratio 14.4 (10.0-20.0); Calcium 8.5 mg/dL (8.7-10.4); Carbon Dioxide 28 mmol/L (20-30); Chloride 100 mmol/L (98-107); Glucose 128 mg/dL (74-106); Magnesium 1.9 mg/dL (1.6-2.6); Potassium 3.7 mmol/L (3.5-5.1); Sodium 136 mmol/L (136-145)
[2024-05-15 05:58] LABS: Albumin 3.4 g/dL (3.2-4.8); Aspartate Aminotransferase 27 U/L (13-40); Bilirubin, Total 1.3 mg/dL (0.2-1.0); Blood Urea Nitrogen 70 mg/dL (9-23); Phosphorus 3.4 mg/dL (2.4-5.1)
[2024-05-15] MEDS: SODIUM CHL 0.9% 1000 ML BAG XX ONE (07:00)
[2024-05-15] MEDS: PPN PER PHARMACY IV NR (20:02)
[2024-05-16] VITALS (9 sets, daily range): BP systolic 110–170; BP diastolic 27–90; PULSE 71–82; RESP 16–20; TEMP 97.4–99.3; O2SAT 95–100
[2024-05-16 09:11] LABS: Alanine Aminotransferase 27 U/L (7-40); Albumin 3.2 g/dL (3.2-4.8); Alkaline Phosphatase 100 U/L (46-116); Anion Gap 9 (5-15); Aspartate Aminotransferase 40 U/L (13-40); Carbon Dioxide 28 mmol/L (20-30); Chloride 102 mmol/L (98-107); Glucose 180 mg/dL (74-106); Sodium 139 mmol/L (136-145)
[2024-05-16 09:12] LABS: BUN/Creatinine Ratio 20.3 (10.0-20.0); Blood Urea Nitrogen 73 mg/dL (9-23); Phosphorus 1.2 mg/dL (2.4-5.1)
[2024-05-16 09:14] LABS: Bilirubin, Total 1.1 mg/dL (0.2-1.0); Total Protein 5.8 g/dL (5.7-8.2)
[2024-05-16 09:24] LABS: Magnesium 1.8 mg/dL (1.6-2.6)
[2024-05-16] MEDS: POTASSIUM PHOSPHATE 22 MEQ in SODIUM CHL 0.9% 100 ML IV ONE (11:22)
[2024-05-16] MEDS: PPN PER PHARMACY IV NR (19:59)
[2024-05-17] VITALS (8 sets, daily range): BP systolic 88–169; BP diastolic 40–64; PULSE 68–85; RESP 16–19; TEMP 97.2–97.8; O2SAT 97–100
[2024-05-17] MEDS: SODIUM CHL 0.9% 1000 ML BAG XX ONE (07:00)
[2024-05-17 07:23] LABS: Alanine Aminotransferase 35 U/L (7-40); Albumin 3.3 g/dL (3.2-4.8); Alkaline Phosphatase 104 U/L (46-116); Anion Gap 12 (5-15); Aspartate Aminotransferase 60 U/L (13-40); BUN/Creatinine Ratio 24.5 (10.0-20.0); Bilirubin, Total 0.9 mg/dL (0.2-1.0); Calcium 8.8 mg/dL (8.7-10.4); Carbon Dioxide 22 mmol/L (20-30); Chloride 100 mmol/L (98-107); Glucose 142 mg/dL (74-106); Magnesium 2.2 mg/dL (1.6-2.6); Phosphorus 2.5 mg/dL (2.4-5.1); Potassium 4.8 mmol/L (3.5-5.1)
[2024-05-17 07:26] LABS: Sodium 134 mmol/L (136-145)
[2024-05-17 07:28] LABS: Blood Urea Nitrogen 115 mg/dL (9-23)
[2024-05-17] MEDS: PPN PER PHARMACY IV NR (21:07)
[2024-05-18] VITALS (9 sets, daily range): BP systolic 129–160; BP diastolic 39–48; PULSE 62–79; RESP 16–20; TEMP 97.5–98.5; O2SAT 95–100
[2024-05-18 06:20] LABS: Alanine Aminotransferase 60 U/L (7-40); Alkaline Phosphatase 105 U/L (46-116); Anion Gap 6 (5-15); BUN/Creatinine Ratio 16.6 (10.0-20.0); Calcium 8.3 mg/dL (8.7-10.4); Carbon Dioxide 27 mmol/L (20-30); Chloride 100 mmol/L (98-107); Glucose 144 mg/dL (74-106); Magnesium 2.1 mg/dL (1.6-2.6); Potassium 4.3 mmol/L (3.5-5.1); Sodium 133 mmol/L (136-145)
[2024-05-18 06:21] LABS: Aspartate Aminotransferase 95 U/L (13-40); Phosphorus 2.5 mg/dL (2.4-5.1)
[2024-05-18 06:22] LABS: Bilirubin, Total 0.8 mg/dL (0.2-1.0); Total Protein 5.6 g/dL (5.7-8.2)
[2024-05-18 06:30] LABS: Blood Urea Nitrogen 58 mg/dL (9-23)
[2024-05-18] MEDS ORDERED: DEXTROSE (50%) 50ML SYRG IV PRN (11:00)
[2024-05-18] MEDS: FLORASTOR (S. BOULARDII) 250 MG CAP PO SCH (12:12)
[2024-05-18] MEDS: PANTOPRAZOLE 40 MG TAB PO ONE (12:12)
[2024-05-18] MEDS: DIPHENOXYLATE W/ATROPINE 2.5 MG TAB PO PRN (12:13)
[2024-05-18] MEDS: ACCU-CHEK COMFORT CURVE STRIP VI SCH (12:16)
[2024-05-18] MEDS: InsuLIN REG 1unit/0.01ml Soln (100units/ml) SC SCH (12:29)
[2024-05-19 01:00] VITALS: BP 146/35; PULSE 65; RESP 20; TEMP 97.7; O2SAT 100
[2024-05-19] MEDS: PANTOPRAZOLE 40 MG TAB PO SCH (06:11)
[2024-05-19 08:30] VITALS: PULSE 67; PULSE 74; RESP 18; O2SAT 96
[2024-05-19 09:10] VITALS: BP 147/48; PULSE 72; RESP 18; TEMP 97.9; O2SAT 98
[2024-05-19] MEDS: amLODIPine BESYLATE 5 MG TAB PO SCH (10:00)
[2024-05-19 10:30] VITALS: O2SAT 97
[2024-05-19] MEDS: ATORVASTATIN 20 MG TAB PO SCH (12:54)
[2024-05-19 13:27] VITALS: BP 153/40; PULSE 63; RESP 18; TEMP 98; O2SAT 97
[2024-05-19 17:05] VITALS: BP 126/48; PULSE 58; RESP 16; TEMP 97.6; O2SAT 98
== END 2024-05-19 17:00 | disposition home health service (06) | DRG 53 ==
LOC: EDSEX 19:19 → EDUNIT# 19:19 → ER 19:19 → EDBD 19:19 → TELE 23:35 → DOU IN ICU 23:41 → TELE-CENTR 05-10 20:15
PROVIDERS: ADMIT Nurse Practitioner Acute Care; ATTEND Nurse Practitioner Acute Care
PROC: 5A1D70Z Performance of Urinary Filtration, Intermittent, Less than 6 Hours Per Day (ICD-10-PCS; principal; 2024-04-30)
PROC: 5A1D70Z Performance of Urinary Filtration, Intermittent, Less than 6 Hours Per Day (ICD-10-PCS; 2024-05-02)
PROC: 5A1D70Z Performance of Urinary Filtration, Intermittent, Less than 6 Hours Per Day (ICD-10-PCS; 2024-05-03)
PROC: 5A1D70Z Performance of Urinary Filtration, Intermittent, Less than 6 Hours Per Day (ICD-10-PCS; 2024-05-05)
PROC: 5A1D70Z Performance of Urinary Filtration, Intermittent, Less than 6 Hours Per Day (ICD-10-PCS; 2024-05-07)
PROC: 5A1D70Z Performance of Urinary Filtration, Intermittent, Less than 6 Hours Per Day (ICD-10-PCS; 2024-05-11)
PROC: 5A1D70Z Performance of Urinary Filtration, Intermittent, Less than 6 Hours Per Day (ICD-10-PCS; 2024-05-12)
PROC: 5A1D70Z Performance of Urinary Filtration, Intermittent, Less than 6 Hours Per Day (ICD-10-PCS; 2024-05-13)
PROC: 5A1D70Z Performance of Urinary Filtration, Intermittent, Less than 6 Hours Per Day (ICD-10-PCS; 2024-05-15)
PROC: 5A1D70Z Performance of Urinary Filtration, Intermittent, Less than 6 Hours Per Day (ICD-10-PCS; 2024-05-17)
PROC: 5A1D70Z Performance of Urinary Filtration, Intermittent, Less than 6 Hours Per Day (ICD-10-PCS; 2024-05-19)
DX: G40.901 Epilepsy, unspecified, not intractable, with status epilepticus (principal); J96.01 Acute respiratory failure with hypoxia; J69.0 Pneumonitis due to inhalation of food and vomit; I31.39 Other pericardial effusion (noninflammatory); E11.649 Type 2 diabetes mellitus with hypoglycemia without coma; D69.6 Thrombocytopenia, unspecified; I12.0 Hypertensive chronic kidney disease with stage 5 chronic kidney disease or end stage renal disease; I27.20 Pulmonary hypertension, unspecified; N18.6 End stage renal disease; E11.22 Type 2 diabetes mellitus with diabetic chronic kidney disease; E87.5 Hyperkalemia; R04.0 Epistaxis; R47.01 Aphasia; R47.1 Dysarthria and anarthria; R13.10 Dysphagia, unspecified; Z99.2 Dependence on renal dialysis; Z83.3 Family history of diabetes mellitus; Z82.49 Family history of ischemic heart disease and other diseases of the circulatory system; Z79.4 Long term (current) use of insulin
CPT/HCPCS: 36415; 36600; 70450; 70490; 70551; 71045; 71250; 80048; 80053; 80069; 80202; 81001; 82140; 82306; 82607; 82728; 82746; 82805; 82962; 83540; 83550; 83735; 84100; 84478; 84484; 85007; 85014; 85018; 85025; 85027; 87081; 87340; 90935; 92507; 92610; 93306; 94640; 95819; 97110; 97116; 97163; 97530; 99291; A4565; G0378; J1642; J1815; J2405; J2543; J3480; J7060; J7131; P9047

== ENCOUNTER → 2024-04-29 | Day surgery (SDC) | payer MEDICAID ==
[2024-04-26 14:25] LABS: Basophils # (auto) 0.1 10 ^3/uL (0-0.2); Basophils % (auto) 1.1 % (0.0-2.0); Eosinophils # (auto) 0.3 10 ^3/uL (0-0.8); Hematocrit 35.7 % (41.0-53.0); INR 1.3 (0.9-1.15); Lymphocytes # (auto) 0.9 10 ^3/uL (0.4-5.4); Mean Corpuscular Hgb Conc. 32.6 g/dL (32.0-36.0); Monocytes # (auto) 0.5 10 ^3/uL (0-1.3); Partial Thromboplastin Time 30.6 SEC (24.5-34.5); Prothrombin Time 13.5 sec (9.3-11.8); Red Blood Cells 3.96 10^6/uL (4.5-5.90)
[2024-04-26 14:27] LABS: Eosinophils % (auto) 6.2 % (0.0-7.0); Hemoglobin 11.7 g/dL (13.5-17.5); Lymphocytes % (auto) 16.9 % (10.0-50.0); Mean Corpuscular Hemoglobin 29.5 pg (28.0-32.0); Mean Corpuscular Volume 90.3 fL (80.0-100.0); Monocytes % (auto) 10.2 % (0.0-12.0); Neutrophils # (auto) 3.3 10 ^3/uL (1.6-8.6); Neutrophils % (auto) 65.6 % (37.0-80.0); Nucleated Red Blood Cells % 0.2 %; Red Cell Distribution Width 17.3 % (11.8-14.3); White Blood Cell 5.1 10^3/uL (4.4-10.8)
[2024-04-26 14:49] LABS: Alanine Aminotransferase 49 U/L (7-40); Albumin 3.7 g/dL (3.2-4.8); Alkaline Phosphatase 109 U/L (46-116); Anion Gap 8 (5-15); Aspartate Aminotransferase 36 U/L (13-40); BUN/Creatinine Ratio 5.4 (10.0-20.0); Blood Urea Nitrogen 41 mg/dL (9-23); Carbon Dioxide 24 mmol/L (20-30); Chloride 103 mmol/L (98-107); Glucose 174 mg/dL (74-106); Sodium 135 mmol/L (136-145)
[2024-04-26 14:50] LABS: Bilirubin, Total 0.7 mg/dL (0.2-1.0); Total Protein 6.7 g/dL (5.7-8.2)
[2024-04-26 15:57] LABS: Potassium 5.9 mmol/L (3.5-5.1)
[2024-04-26 16:23] LABS: Platelet Estimate Decreased
[~2024-04-29] VITALS: Ht 167.6 cm; Wt 54.0 kg
[~2024-04-29] MED LIST changes: +ATOR20TA PO; +B-CO-5 OR; -B-COTAB10 OR; +CHL4PW PO; -FLUMAZENIL 0.1 MG/ML INJ 10ML MDV IV ONE; +GABA-1251 PO; -GABA100C9 PO; -HYDR50TA15 PO; +HYDR50TA47 PO; +InsuLIN REG 1unit/0.01ml Soln (100units/ml) ONE; +InsuLIN REG 1unit/0.01ml Soln (100units/ml) SC SCH; +LIDOCAINE 2% (LOCAL ANESTH.) PF 5ml SDV ONE; -NALOXONE HCL 0.4 MG/ML VIAL ONE; +PROPOFOL 10 MG/ML 20 ML IV ONE; +SACU1TAB4 PO; +TRAZ-228 PO; -TRAZ100T3 PO; -diphenhdrAMINE HCL 50 MG/1 ML VL ONE
[2024-04-29 09:25] LABS: Chloride 98 mmol/L (98-107)
[2024-04-29 09:26] LABS: Anion Gap 9 (5-15); Calcium 8.3 mg/dL (8.5-10.1); Carbon Dioxide 23 mmol/L (20-30)
[2024-04-29 09:31] LABS: BUN/Creatinine Ratio 5.7 (10.0-20.0); Blood Urea Nitrogen 46 mg/dL (9-23)
[2024-04-29 09:36] LABS: Sodium 130 mmol/L (136-145)
[2024-04-29 09:40] LABS: Glucose 372 mg/dL (74-106)
[2024-04-29 09:46] LABS: Potassium 6.1 mmol/L (3.5-5.1)
[2024-04-29 11:02] VITALS: PULSE 48; RESP 15; TEMP 98.1; O2SAT 100
[2024-04-29 11:47] VITALS: BP 121/42; PULSE 53; RESP 15; O2SAT 93
== END | disposition home or self-care (01) ==
LOC: GI 08:00
PROVIDERS: ATTEND Internal Medicine Gastroenterology
DX: R13.10 Dysphagia, unspecified (principal); T18.2XXA Foreign body in stomach, initial encounter; I12.0 Hypertensive chronic kidney disease with stage 5 chronic kidney disease or end stage renal disease; E11.22 Type 2 diabetes mellitus with diabetic chronic kidney disease; N18.6 End stage renal disease; K21.9 Gastro-esophageal reflux disease without esophagitis; Z86.2 Personal history of diseases of the blood and blood-forming organs and certain disorders involving the immune mechanism; Z90.49 Acquired absence of other specified parts of digestive tract; Z79.899 Other long term (current) drug therapy; Z98.890 Other specified postprocedural states; Z87.891 Personal history of nicotine dependence; Z83.3 Family history of diabetes mellitus; Z82.49 Family history of ischemic heart disease and other diseases of the circulatory system
CPT/HCPCS: 36415; 43235; 43450; 80048; 80053; 82962; 85025; 85610; 85730; J1815; J2001; J2704; J7030